=== PATIENT | female | born 1990 | race Caucasian/White ===

== ENCOUNTER 2020-07-06 12:42 | Emergency (ER) | payer OTHER ==
[~2020-07-06] VITALS: Ht 165.1 cm; Wt 108.9 kg
[~2020-07-06 12:42] MED LIST: ACTICIN 5% CREA60 G1 TOP; BENTYL20 MG PO; HYDROCORTISONE30 G9 RECTAL; MACROBID 100 M100 M1 PO; MEDROLDOSEPACK PO; ONDANSETRON HCL4 M2 PO; PREDNISONE 10 M10 MG PO; ULTRAM 50MG TAB50 MG PO; ZOFRAN ODT4 MG PO; ZOFRAN4 MG PO
[2020-07-06] MEDS ORDERED: NAPROSYN500 MG PO (13:10)
[2020-07-06] MEDS ORDERED: CLEOCIN HCL300 MG PO (13:10)
[2020-07-06] MEDS ORDERED: TRAMADOL 50 MG50 MG PO (13:10)
[2020-07-06 13:31] VITALS: BP 134/83
== END 2020-07-06 13:32 | disposition home or self-care (01) ==
LOC: M.ERS 12:42
DX: K04.7 Periapical abscess without sinus (principal); K02.9 Dental caries, unspecified; F17.210 Nicotine dependence, cigarettes, uncomplicated; Z98.51 Tubal ligation status; Z88.0 Allergy status to penicillin; Z88.6 Allergy status to analgesic agent

== ENCOUNTER 2020-12-04 03:18 | Emergency (ER) | payer OTHER ==
[~2020-12-04] VITALS: Ht 165.1 cm; Wt 112.5 kg
[~2020-12-04 03:18] MED LIST changes: +CLEOCIN HCL300 MG PO; +NAPROSYN500 MG PO; +TRAMADOL 50 MG50 MG PO
[2020-12-04 04:00] LABS: URINE BILIRUBIN NEGATIVE (Negative); URINE BLOOD NEGATIVE (Negative); URINE CLARITY CLEAR; URINE COLOR YELLOW; URINE GLUCOSE-RANDOM NEGATIVE (Negative); URINE KETONES NEGATIVE (Negative); URINE LEUKOCYTES-REFLEX NEGATIVE (Negative); URINE NITRITE-REFLEX NEGATIVE (Negative); URINE PROTEIN NEGATIVE (Negative); URINE SPECIFIC GRAVITY >= 1.030 (1.005-1.030); URINE UROBILINOGEN 0.2 E.U./dl (0.2-1.0)
[2020-12-04 04:05] LABS: ABSOLUTE BASOPHILS 0.2 thou/uL (0.0-0.2); ABSOLUTE EOSINOPHILS 0.7 thou/uL (0.0-0.7); ABSOLUTE LYMPHOCYTES 4.4 thou/uL (0.8-5.3); ABSOLUTE MONOCYTES 1.1 thou/uL (0.0-1.2); ABSOLUTE NEUTROPHILS 6.4 thou/uL (1.6-8.1); BASOPHILS 1.3 %; EOSINOPHILS 5.3 %; HEMATOCRIT 43.6 % (37.0-47.0); HEMOGLOBIN 14.7 gm/dL (12.0-15.0); LYMPHOCYTES 34.6 %; MCH 29.9 pg (26.0-34.0); MCHC 33.8 g/dL (28.0-37.0); MCV 88.4 fL (80.0-100.0); MONOCYTES 8.5 %; MPV 7.3 fl. (7.2-11.1); NUCLEATED RBCS 0 /100WBC; PLATELET COUNT* 360 thou/uL (150-400); POLYS 50.3 %; RBC 4.93 mil/uL (4.20-5.00); RDW-CV 13.3 % (10.5-14.5); WBC 12.7 thou/uL (4.0-11.0)
[2020-12-04 04:11] LABS: CALCIUM 8.8 mg/dL (8.5-10.1); CREATININE 0.9 mg/dL (0.6-1.3); POTASSIUM 3.7 mmol/L (3.5-5.1)
[2020-12-04 04:16] LABS: ALBUMIN 3.2 g/dL (3.4-5.0); TOTAL BILIRUBIN 0.3 mg/dL (<0.1-1.0); TOTAL PROTEIN 7.1 g/dL (6.4-8.2)
[2020-12-04] MEDS ORDERED: CARAFATE 1 GM TA1 GM PO (04:46)
[2020-12-04] MEDS ORDERED: OMEPRAZOLE40 MG PO (04:46)
[2020-12-04] MEDS ORDERED: ULTRAM 50MG TAB50 MG PO (05:57)
[2020-12-04 06:05] VITALS: BP 106/67
== END 2020-12-04 06:05 | disposition home or self-care (01) ==
LOC: M.ERS 03:18
PROVIDERS: Personal Emergency Response Attendant
DX: K29.70 Gastritis, unspecified, without bleeding (principal); F17.210 Nicotine dependence, cigarettes, uncomplicated; Z88.0 Allergy status to penicillin; Z88.5 Allergy status to narcotic agent; Z88.6 Allergy status to analgesic agent; Z98.51 Tubal ligation status

== ENCOUNTER 2021-04-30 00:26 | Emergency (ER) | payer OTHER ==
[~2021-04-30] VITALS: Ht 165.1 cm; Wt 106.6 kg
[~2021-04-30 00:26] MED LIST changes: +CARAFATE 1 GM TA1 GM PO; +OMEPRAZOLE40 MG PO
[2021-04-30 00:39] VITALS: BP 140/103
--- NOTE | 2021-04-30 10:57 | EKG ---
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
== END 2021-04-30 04:38 | disposition left against medical advice (07) ==
LOC: M.ERS 00:26
DX: J02.9 Acute pharyngitis, unspecified (principal); Z53.21 Procedure and treatment not carried out due to patient leaving prior to being seen by health care provider

== ENCOUNTER 2021-08-25 19:07 | Emergency (ER) | payer OTHER ==
[~2021-08-25] VITALS: Ht 165.1 cm; Wt 108.9 kg
[2021-08-25 19:30] VITALS: BP 143/90
[2021-08-25] MEDS ORDERED: VISTARIL 25 MG25 M1 PO (20:10)
== END 2021-08-25 20:22 | disposition home or self-care (01) ==
LOC: M.ERS 19:07
DX: F41.0 Panic disorder [episodic paroxysmal anxiety] (principal); F17.210 Nicotine dependence, cigarettes, uncomplicated; Z98.51 Tubal ligation status; Z88.5 Allergy status to narcotic agent; Z88.6 Allergy status to analgesic agent